=== PATIENT | female | born 1975 | race Caucasian/White ===

== ENCOUNTER → 2020-10-08 06:51 | Outpatient (CLI) | payer OTHER, SELFPAY ==
[2020-10-08 19:10] LABS: SARS-CoV-2 RNA PCR Negative
== END ==
PROVIDERS: PCP Nurse Practitioner Family; Visit Provider Nurse Practitioner Family
DX: R68.89 Other general symptoms and signs (principal); Z20.822 Contact with and (suspected) exposure to COVID-19
CPT/HCPCS: C9803; U0003; U0005

== ENCOUNTER 2022-08-22 12:06 | Emergency (ER) | payer OTHER, SELFPAY ==
--- NOTE | ~2022-08-22 | XR_ITS ---
EXAMINATION: XR foot LT min 3V DATE: 08/22/2022 12:33 INDICATION: Left foot pain. TECHNIQUE: 4 views of left foot were obtained. COMPARISON: None. FINDINGS: Bone alignment is normal. No fracture. There is mild midfoot osteoarthritis. There are enth esophytes at the posterior and plantar aspects of calcaneal tuberosity. IMPRESSION: 1. Mild midfoot osteoarthritis. Reviewed, dictated and finalized at location L.
[2022-08-22 12:13] VITALS: BP 148/90; PULSE 75; RESP 16; TEMP 36.7; O2SAT 100
--- NOTE | 2022-08-22 12:21 | ED.EXTPRO ---
HPI - Extremity Problem General Chief complaint: Extremity Injury, Lower Stated complaint: Left Foot Pain Time Seen by Provider: 08/22/22 12:20 Source: patient Mode of arrival: ambulatory Limitations: no limitations History of Present Illness HPI Narrative: Ceci is a 47-year-old female patient presenting to the clinic today with complaints of left mid foot pain between the 3rd and 4th metatarsals. She reports this has been going on and off for 2 months. States she initially injured it at the gym. Is having a burning sharp pain in the midfoot between the 3rd and 4th toe that comes and goes. Denies feeling as though she is stepping on a marble and denies any pain to the bottom of her foot. 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 Has been taking ibuprofen that has helped alleviate some of her symptoms. Related Data Home Medications Medication Instructions Recorded Confirmed metoprolol tartrate 25 mg tablet 25 mg DIRECTED 08/22/22 08/22/22 Allergies Allergy/AdvReac Type Severity Reaction Status Date / Time No Known Allergies Allergy Unverified 01/03/17 19:07 Review of Systems Review of Systems: Pertinent positives per HPI. Patient denies any fever, chills, rash, headache, visual changes, dizziness, cough, runny nose, sore throat, shortness of breath, chest pain, palpitations, nausea, vomiting, diarrhea, constipation, abdominal pain, or any urinary issues. PMFSH Comments At the time of my signature, I reviewed and agree with the nursing past medical, surgical, social, and family history. There is no relevant family history pertinent to the patient complaint. Exam Narrative: General: Well-developed, well nourished, in no apparent distress Head: Normocephalic, atraumatic. Cardio: Regular rate and rhythm, s1 and s2 normal, no murmur appreciated. Resp: Clear to auscultation bilaterally, no rhonchi, rales, wheezing or rubs. Musculoskeletal: No deformity, tender to palpation over the lateral dorsal midfoot between the 3rd and 4th metatarsals, grossly normal range of motion, muscle strength strong and equal, peripheral pulse strong, no edema, no cyanosis, normal gait and station Course Course Emergency Course: Portions of this record may have been created with voice recognition software. Level of Care: Express Care Visit Vital Signs Vital signs: Vital signs reviewed MDM - Extremity (Nontraumatic) MDM Narrative Medical decision making narrative: At the time of visit patient is resting comfortably on exam table. X-ray of the left foot was performed and shows some mild osteoarthritis of the midfoot. Cannot exclude Reynolds's neuroma from diagnoses. Recommend follow-up with sustainable products marketing manager to have further imaging/evaluation. Supportive measures were discussed with the patient she voiced understanding of the discharge instructions and agrees to treatment plan. Differential Diagnosis Differential diagnosis: Likely other (Foot sprain, arthritis, ligament strain, Reynolds's neuroma) Imaging Data Radiologist's impression: [facility] [address] [place] [address] XRay Report Signed Patient: Ceci Alvarez : 1975 MR#: [id number] Age/Sex: 47 / F Acct:[id number] Loc: [facility]PC[facility]? ? ADM Date: 08/22/22Attending Dr: Ordering Physician: Chris Sinclair APRN Date of Service: 08/22/22 Procedure(s): XR foot LT min 3V Accession Number(s): [id number] cc: Ty, Sarahi Hawkins APN; Chris Sinclair APRN~ EXAMINATION: XR foot LT min 3V DATE: 08/22/2022 12:33 INDICATION: Left foot pain. TECHNIQUE: 4 views of left foot were obtained. COMPARISON: None. FINDINGS: Bone alignment is normal. No fracture. There is mild midfoot osteoarthritis. There are enthesophytes at the posterior and plantar aspects of calcaneal tuberosity. IMPRESSION: 1. Mild midfoot osteoarthritis.
== END 2022-08-22 12:51 | disposition home or self-care (01) ==
PROVIDERS: Emergency Provider Nurse Practitioner Family; PCP Nurse Practitioner Family
DX: M19.072 Primary osteoarthritis, left ankle and foot (principal)
CPT/HCPCS: 73630; 99213; G0463

== ENCOUNTER 2023-02-26 12:48 | Outpatient (CLI) | payer OTHER, SELFPAY ==
--- NOTE | ~2023-02-26 | XR_ITS ---
EXAMINATION:XR_[id number]_CR, XR thoracic spine 2V, XR lumbar spine 2-3V DATE: 02/26/2023 13:39 INDICATION: Cervical and thoracic spine pain and lumbar intervertebral disc degeneration TECHNIQUE: 1. Standing AP, lateral and odontoid views of the cervical spine are provided. 2. Standing AP, lateral and lateral swimmer's views of the thoracic spine were obtained. 3. Standing AP, lateral and coned-down lateral lumbosacral views of the lumbar spine were obtained. COMPARISON: CT abdomen pelvis dated 08/28/2018 FINDINGS: Cervical spine: Odontoid is intact. Normal atlantoaxial interval. Vertebral body heights are normal. 1 mm retrolisth esis C5 on C6 with moderate disc height loss and with posterior osteophyte at the inferior endplate o f C5 results in mild central canal stenosis at this level. Mild disc height loss with small anterior endplate osteophytes at C3-C4, C4-C5 and C6-C7. There is multilevel mild to moderate cervical facet a nd uncovertebral osteoarthritis. Prevertebral soft tissues are normal. Thoracic spine: 4 degrees of lower thoracic levocurvature. Mild thoracic kyphosis. Chronic mild anterior wedging at T 8 and T9. Moderate disc height loss with moderate anterior endplate osteophytes at multiple levels th roughout the mid to lower thoracic spine. Visualized portion of the lungs are clear with no pleural e ffusion or pneumothorax. Heart size is normal. Lumbar spine: 8 degree lumbar levocurvature. Sagittal alignment is normal. Lumbar vertebral body heights are normal . Mild disc height loss at L2-3, L3-L4 and L4-L5. Severe facet osteoarthritis on the right at L4-L5 a nd bilaterally at L5-S1. Mild to moderate facet osteoarthritis in the more cephalad lumbar spine. Is also mild bilateral sacroiliac osteoarthritis. IMPRESSION: 1. Moderate cervical and thoracic spondylosis and mild lumbar spondylosis. 2. Chronic mild anterior wedging at T8 and T9. No evident acute osseous abnormality. Reviewed, dictated and finalized at location A. NARY SPECIALIST IMPRESSION: 1. Moderate cervical and thoracic spondylosis and mild lumbar spondylosis. 2. Chronic mild anterior wedging at T8 and T9. No evident acute osseous abnorma lity. IMPRESSION: 1. Moderate cervical and thoracic spondylosis and mild lumbar spondylosis. 2. Chronic mild anterior wedging at T8 and T9. No evident acute osseous abnorma lity.
== END 2023-02-26 12:49 ==
PROVIDERS: PCP Nurse Practitioner Family; Visit Provider Nurse Practitioner Family
DX: M51.36 Other intervertebral disc degeneration, lumbar region (principal); M47.892 Other spondylosis, cervical region; M47.894 Other spondylosis, thoracic region; M47.896 Other spondylosis, lumbar region
CPT/HCPCS: 72040; 72070; 72100

== ENCOUNTER 2023-03-07 00:40 | Emergency (ER) | payer OTHER, SELFPAY ==
--- NOTE | 2023-03-07 00:51 | ECG_ITS ---
Measurements Intervals [place] Rate: 80 P: 70 HI: 150 QRS: 33 QRSD: 93 T: 50 QT: 351 QTc: 405 Interpretive Statements SINUS RHYTHM NORMAL ECG NO PREVIOUS ECG AVAILABLE FOR COMPARISON Electronically Signed On 03-07-2023 10:38:49 [employer] SUPER[employer] by Cuco Massey M.D.
[2023-03-07 00:52] VITALS: BP 159/136; PULSE 95; RESP 20; TEMP 36.6; O2SAT 100
[2023-03-07 02:15] VITALS: BP 127/89; PULSE 79; RESP 16; O2SAT 99
[2023-03-07 03:22] LABS: Basophils Absolute Auto 0.1 K/mm3 (0.0-0.1); Basophils Percent Auto 0.9 % (0.2-1.2); Eosinophils Absolute Auto 0.2 K/mm3 (0-0.3); Eosinophils Percent Auto 2.4 % (0-4.4); Hematocrit 40.3 % (37.0-47.0); Hemoglobin 13.2 g/dL (12.0-15.0); Immature Granulocyte Absolute 0.03 K/mm3 (0.00-0.031); Immature Granulocyte Percent A 0.3 % (0-0.5); Lymphocytes Absolute Auto 1.99 K/mm3 (0.9-3.2); Lymphocytes Percent Auto 19.8 % (18.3-44.2); Mean Corpuscular HGB Conc 32.8 g/dl (32-36); Mean Corpuscular Hemoglobin 27.7 pg (26-34); Mean Corpuscular Volume 84.7 fl (80-100); Mean Platelet Volume 10.6 fl (7.4-10.4); Monocytes Absolute Auto 0.6 K/mm3 (0.1-0.6); Monocytes Percent Auto 6.1 % (2.6-8.5); Neutrophils Absolute Auto 7.1 K/mm3 (1.3-6.7); Neutrophils Percent Auto 70.5 % (45.5-73.1); Platelet Count Result 327 k/mm3 (150-375); Red Blood Count 4.76 M/mm3 (4.2-5.4); Red Cell Distribution Width 12.8 % (11.5-14.5); White Blood Count 10.1 K/mm3 (4.5-10.0)
[2023-03-07 03:28] LABS: Appearance Urine Clear (Clear); Bacteria Urine None Seen /hpf; Bilirubin Urine Negative (Negative); Blood Urine 3+ (Negative); Color Urine Yellow (Yellow); Glucose Urine UA Negative (Negative); Ketones Urine Negative (Negative); Leukocyte Esterase Ur Negative LEU/UL (Negative); Nitrate Urine Negative (Negative); Non Pathogenic Casts 0-2; Protein Urine Negative (Negative); Specific Grav Ur 1.003 (1.001-1.035); Squamous Epithelial Cell Urine None seen /hpf (Few); Urobilinogen Urine 0.2 mg/dL (<2.0); WBC Urine 0-5 /hpf; pH Urine 5.5 (5.0-9.0)
[2023-03-07 03:40] LABS: Add Urine Microscopic? YES
[2023-03-07 03:56] LABS: Alanine Aminotransferase 20 U/L (6-35); Albumin Level 4.3 g/dL (3.5-5.1); Alkaline Phosphatase 73 U/L (38-126); Anion Gap 7 mmol/L (8-16); Aspartate Amino Transferase 29 U/L (14-36); Bilirubin,Total 0.3 mg/dL (0.2-1.3); Blood Urea Nitrogen 20 mg/dL (7-17); Calcium 9.2 mg/dL (8.4-10.2); Carbon Dioxide 24 mmol/L (22-30); Chloride 108 mmol/L (98-107); Estimated CRCL calculation 76 ml/min; Estimated Glomerular Filt Rate > 60; Glucose 109 mg/dL (65-110); Lipase 86 U/L (23-300); Potassium 4.3 mmol/L (3.4-5.0); Sodium 139 mmol/L (137-145)
[2023-03-07 04:08] LABS: Troponin I < 0.012 ng/mL (0.000-0.034)
[2023-03-07 04:40] VITALS: BP 150/92; PULSE 88; RESP 15; O2SAT 100
--- NOTE | 2023-03-07 04:51 | ED.GENADULT ---
HPI - General Adult General Chief complaint: Nausea/Vomiting/Diarrhea Stated complaint: htn, palpitations Time Seen by Provider: 03/07/23 01:23 History of Present Illness HPI narrative: patient presents the emergency department with concerns about her blood pressure. She was very nauseous at home start checking her blood pressure. Since her skin felt tight. Blood pressure initially 140s over 80s she was concerned this was high for her although does not know her baseline blood pressure. This is what it normally is when she goes to the doctor's office she checked it a couple times and it continued to increase to 150s at home. Since being in the emergency department she overall feels better. Nausea is decreased and her skin does not feel tight anymore. She also had tingling of her fingers at home prior to arrival has resolved. Blood pressures have been elevated in the emergency department better slowly decrease in Related Data Home Medications Medication Instructions Recorded Confirmed metoprolol tartrate 25 mg tablet 25 mg DIRECTED 08/22/22 08/22/22 Allergies Allergy/AdvReac Type Severity Reaction Status Date / Time acetaminophen [From Vicodin] AdvReac Unknown Anxiety Verified 03/07/23 01:00 hydrocodone [From Vicodin] AdvReac Unknown Anxiety Verified 03/07/23 01:00 Review of Systems Review of Systems: negative except what is documented in the HPI Exam Narrative: GENERAL: Well-appearing, well-nourished, and in no acute distress. HEAD: Normocephalic, atraumatic. EYES: PERRLA and EOMI. ENT: Nares clear, no rhinorrhea or epistaxis. Mucous membranes moist. NECK: Supple. CHEST: Clear to auscultation. No respiratory distress. HEART: Regular rate and rhythm. ABDOMEN: Soft, nontender, nondistended. EXTREMITIES: Normal range of motion. No edema. SKIN: Warm, dry, no rash. NEURO: No focal deficits. Alert and oriented x3. PSYCH: Normal mood and affect. Course Course Emergency Course: CBC grossly normal. CMP grossly normal. patient denies chest pain but troponin is unremarkable. EKG ordered and is normal sinus rhythm without ischemia Vital Signs Vital signs: Vital Signs Temperature 36.6 C 03/07/23 00:52 Pulse Rate 95 03/07/23 00:52 Respiratory Rate 20 03/07/23 00:52 Blood Pressure 159/136 H 03/07/23 00:52 Pulse Oximetry 100 03/07/23 00:52 Oxygen Delivery Room Air 03/07/23 00:52 Temperature 36.6 C 03/07/23 00:52 Pulse Rate 88 03/07/23 04:40 Respiratory Rate 15 03/07/23 04:40 Blood Pressure 150/92 H 03/07/23 04:40 Pulse Oximetry 100 03/07/23 04:40 Oxygen Delivery Room Air 03/07/23 00:52 Medical Decision Making Vital Signs Vital Signs: Vital Signs Temperature 36.6 C 03/07/23 00:52 Pulse Rate 95 03/07/23 00:52 Respiratory Rate 20 03/07/23 00:52 Blood Pressure 159/136 H 03/07/23 00:52 Pulse Oximetry 100 03/07/23 00:52 Oxygen Delivery Room Air 03/07/23 00:52 Temperature 36.6 C 03/07/23 00:52 Pulse Rate 88 03/07/23 04:40 Respiratory Rate 15 03/07/23 04:40 Blood Pressure 150/92 H 03/07/23 04:40 Pulse Oximetry 100 03/07/23 04:40 Oxygen Delivery Room Air 03/07/23 00:52 Lab Data 03/07/23 03:10 03/07/23 03:41 Labs: Lab Results 03/07/23 03/07/23 Range/Units 03:10 03:41 WBC 10.1 H (4.5-10.0) K/mm3 RBC 4.76 (4.2-5.4) M/mm3 Hgb 13.2 (12.0-15.0) g/dL Hct 40.3 (37.0-47.0) % MCV 84.7 (80-100) fl MCH 27.7 (26-34) pg MCHC 32.8 (32-36) g/dl RDW 12.8 (11.5-14.5) % Plt Count 327 (150-375) k/mm3 MPV 10.6 H (7.4-10.4) fl Immature Gran % (Auto) 0.3 (0-0.5) % Neut % (Auto) 70.5 (45.5-73.1) % Lymph % (Auto) 19.8 (18.3-44.2) % Delta % (Auto) 6.1 (2.6-8.5) % Eos % (Auto) 2.4 (0-4.4) % Baso % (Auto) 0.9 (0.2-1.2) % Lymph # (Auto) 1.99 (0.9-3.2) K/mm3 Delta # (Auto) 0.6 (0.1-0.6) K/mm3 Eos # (Auto) 0.2 (0-
[2023-03-07 06:03] VITALS: BP 137/89; PULSE 1; RESP 15; O2SAT 100
== END 2023-03-07 06:04 | disposition home or self-care (01) ==
PROVIDERS: Emergency Provider Emergency Medicine; PCP Nurse Practitioner Family
DX: I10 Essential (primary) hypertension (principal); R11.0 Nausea
CPT/HCPCS: 36415; 80053; 81001; 81025; 83690; 84484; 85025; 93005; 99284

== ENCOUNTER 2023-06-14 11:21 | Outpatient (CLI) | payer OTHER, SELFPAY ==
--- NOTE | ~2023-06-14 | MM_ITS ---
EXAMINATION: MM screening jaycob BI w wanda HISTORY: Screening TECHNIQUE: Craniocaudal and mediolateral oblique 3-D tomosynthesis images were obtained and synthetic 2-D images were generated. CAD analysis was submitted and interpreted. COMPARISON: No prior mammogram is available for comparison at this institution. BREAST PARENCHYMAL COMPOSITION: Dense: The breasts are heterogeneously dense, which may obscure small masses FINDINGS: There is no evidence of suspicious mass, calcification, or architectural distortion to sugg est malignancy in either breast. There has been no suspicious interval change. IMPRESSION: 1. No mammographic evidence of malignancy. 2. Recommend routine screening mammography in one year. BI-RADS Category 1: Negative Reviewed, dictated and finalized at location A.
== END 2023-06-14 11:22 ==
PROVIDERS: PCP Family Medicine; Visit Provider Family Medicine
DX: Z12.31 Encounter for screening mammogram for malignant neoplasm of breast (principal)
CPT/HCPCS: 77063; 77067